=== PATIENT | female | born 2000 | race Caucasian/White ===

== ENCOUNTER 2025-07-12 20:19 | Inpatient (IN) | payer MEDICAID ==
[~2025-07-12] VITALS: Ht 154.9 cm; Wt 56.5 kg
[2025-07-12 20:36] VITALS: BP 110/62
[2025-07-12 22:33] LABS: BASO # 0.0 10*3/uL (0.0-0.1); BASO % 0.3 % (0.0-1.0); EOS # 0.1 10*3/uL (0.0-0.4); EOS % 1.5 % (1.0-4.0); MEAN CELL VOLUME 94.7 fl (81.0-99.0); MEAN CORPUSCULAR HGB 31.7 pg (27.0-31.0); MEAN PLATELET VOLUME 9.7 fl (9.6-12.3); MONO # 0.3 10*3/uL (0.1-1.0); MONO % 4.7 % (3.0-9.0); NEUT # 3.4 10*3/uL (2.3-7.9); NEUT % 49.0 % (47.0-73.0); NUCLEATED RED BLOOD CELL 0.0 % (0.0-0.0); NUCLEATED RED BLOOD CELL 0.0 10*3/uL (0.0-0.0); PLATELET COUNT AUTOMATED 244 10*3/uL (130-400); RED CELL DISTRI WIDTH 11.6 % (0-14.5)
[2025-07-12] MEDS ORDERED: hydrOXYzine 50 MG CAP PO PRN (22:45)
[2025-07-12] MEDS ORDERED: Dicyclomine Hydrochloride 20 MG TAB PO PRN (22:45)
[2025-07-12] MEDS ORDERED: Ondansetron Hydrochloride 4 MG/2 ML VIAL IV PRN (22:45)
[2025-07-12] MEDS ORDERED: ACETAMINOPHEN 650 MG SUPP R PRN (22:45)
[2025-07-12] MEDS ORDERED: ACETAMINOPHEN 325 MG TAB PO PRN (22:45)
[2025-07-12] MEDS ORDERED: BISACODYL 10 MG SUPP R PRN (22:45)
[2025-07-12] MEDS ORDERED: METHOCARBAMOL 750 MG TAB PO PRN (22:45)
[2025-07-12] MEDS ORDERED: diphenhydrAMINE hydrochloride 50 MG/ML VIAL IV PRN (22:45)
[2025-07-12] MEDS ORDERED: BISACODYL 5 MG TAB PO PRN (22:45)
[2025-07-12 22:52] LABS: BUN 14 mg/dl (9-23)
[2025-07-12 23:04] LABS: BILIRUBIN Negative (Negative); BLOOD Negative (Negative); CLARITY Cloudy (Clear); COLOR Dark Yellow (Yellow); KETONE Trace (Negative); LEUKO ESTERASE 1+ (Negative); NITRITE Positive (Negative); PH 5.5 (4.5-8.0); SPECIFIC GRAVITY 1.025 (1.001-1.030); UROBILINOGEN 1.0 E.U./dl (0.0-1.0)
[2025-07-12 23:11] LABS: URINE AMPHETAMINES Negative (1000ng/ml); URINE BARBITURATES Negative (200ng/ml); URINE BENZODIAZEPINES Negative (200ng/ml); URINE CANNABINOIDS (THC) Negative (50ng/ml); URINE COCAINE Positive (300ng/ml); URINE METHADONE Negative (300ng/ml); URINE OPIATES Negative (300ng/ml); URINE PHENCYCLIDINE Negative (25ng/ml)
[2025-07-12 23:26] LABS: EPITHELIAL CELLS 31-40
[2025-07-12 23:27] LABS: BACTERIA 4+; WBC 21-30 wbc/hpf (0-5)
[2025-07-13 00:30] VITALS: BP 132/65
[2025-07-13] MEDS ORDERED: BUPRENORPHINE HCL/NALOXONE 2 MG/0.5 MG SL TAB SL SCH (06:00)
[2025-07-13 06:12] LABS: MEAN CELL VOLUME 94.1 fl (81.0-99.0); MEAN CORPUSCULAR HGB 31.5 pg (27.0-31.0); MEAN PLATELET VOLUME 10.1 fl (9.6-12.3); NUCLEATED RED BLOOD CELL 0.0 % (0.0-0.0); NUCLEATED RED BLOOD CELL 0.0 10*3/uL (0.0-0.0); PLATELET COUNT AUTOMATED 257 10*3/uL (130-400); RED CELL DISTRI WIDTH 11.7 % (0-14.5)
[2025-07-13 06:13] LABS: MANUAL DIFF REFLEX YES
[2025-07-13 06:20] LABS: BUN 14 mg/dl (9-23); FREE T4 1.25 ng/dl (0.89-1.76); LDL CHOLESTEROL 58 mg/dL (9-159)
[2025-07-13 06:21] LABS: SGPT/ALT < 7 U/L (5-49)
[2025-07-13 07:11] LABS: PLATELET SUFFICIENCY NORMAL (NORMAL)
[2025-07-13 07:14] LABS: VITAMIN D, 25-HYDROXY 30.4 ng/mL (30-100)
[2025-07-13 08:00] VITALS: BP 102/41
[2025-07-13 12:00] VITALS: BP 100/45
[2025-07-13] MEDS ORDERED: diazePAM 10 MG/2 ML SYR IV ONE (13:35)
[2025-07-13] MEDS ORDERED: Buprenorphine Hydrochloride 2 MG TAB SL SCH (14:00)
[2025-07-13 20:00] VITALS: BP 115/51
[2025-07-14] VITALS: BP 110/46
[2025-07-14] MEDS ORDERED: BUPRENORPHINE HCL/NALOXONE 2 MG/0.5 MG SL TAB SL SCH (06:00)
[2025-07-14 08:00] VITALS: BP 105/53
[2025-07-14] MEDS ORDERED: diazePAM 10 MG/2 ML SYR IV ONE (10:25)
[2025-07-14] MEDS ORDERED: Buprenorphine Hydrochloride 2 MG TAB SL SCH ×2 (10:31→14:00)
[2025-07-15] MEDS ORDERED: BUPRENORPHINE HCL/NALOXONE 2 MG/0.5 MG SL TAB SL SCH (10:00)
[2025-07-15] MEDS ORDERED: Buprenorphine Hydrochloride 2 MG TAB SL SCH (10:00)
[2025-07-16] MEDS ORDERED: Buprenorphine Hydrochloride 2 MG TAB SL SCH (14:00)
== END 2025-07-14 11:54 | disposition left against medical advice (07) | DRG 770 ==
LOC: ED 20:19 → EDHOLD 22:27 → 5E 23:52
PROVIDERS: Emergency Medicine; Student in an Organized Health Care Education/Training Program; ADMIT Internal Medicine; ATTEND Internal Medicine
DX: F11.23 Opioid dependence with withdrawal (principal); E83.39 Other disorders of phosphorus metabolism; N30.00 Acute cystitis without hematuria; Z53.29 Procedure and treatment not carried out because of patient's decision for other reasons; F17.210 Nicotine dependence, cigarettes, uncomplicated; F41.9 Anxiety disorder, unspecified